=== PATIENT | female | born 1980 ===

== ENCOUNTER 2017-05-24 07:18 | Observation (INO) | payer OTHER ==
[2011-11-28 01:20] VITALS: O2SAT 100
[2017-05-24 09:29] VITALS: RESP 18; TEMP 97.2
[2017-05-24 11:34] VITALS: BP 102/72; PULSE 96
== END 2017-05-24 12:15 | disposition home or self-care (01) ==
LOC: OB 08:57
PROVIDERS: ADMIT Family Medicine; ATTEND Family Medicine
DX: Z34.83 Encounter for supervision of other normal pregnancy, third trimester (principal); Z3A.39 39 weeks gestation of pregnancy
CPT/HCPCS: 59025

== ENCOUNTER 2017-05-30 22:15 | Inpatient (IN) | payer OTHER ==
[2017-05-30] MEDS ORDERED: FENTANYL 100MCG/2ML SOL IV PRN (22:43)
[2017-05-30] MEDS ORDERED: CARBOPROST 250 MCG/ML SOL IM PRN (22:43)
[2017-05-30] MEDS ORDERED: SODIUM CHLORIDE 0.9% FLUSH 10 ML SOL IV PRN (22:43)
[2017-05-30] MEDS ORDERED: MEPIVACAINE HCL 1% MPF 30 ML SOL INFIL PRN (22:43)
[2017-05-30] MEDS ORDERED: OXYTOCIN 10000 MU/ML SOL IM PRN (22:43)
[2017-05-30] MEDS ORDERED: METHYLERGONOVINE MALEATE 0.2 MG/ML SOL IM PRN (22:43)
[2017-05-30] MEDS ORDERED: LACTATED RINGERS 1,000 ML IV PRN (22:43)
[2017-05-30] MEDS ORDERED: HYDROXYZINE HYDROCHLORIDE 25 MG/ML SOL IM PRN (23:36)
[2017-05-30] MEDS ORDERED: DIPHENHYDRAMINE 25 MG CAP PO PRN (23:36)
[2017-05-30] MEDS ORDERED: NALOXONE HYDROCHLORIDE 0.4 MG/ML SOL IV PRN (23:36)
[2017-05-30] MEDS ORDERED: DIPHENHYDRAMINE 50 MG/ML SOL IM PRN (23:36)
[2017-05-30] MEDS ORDERED: LACTATED RINGERS 1,000 ML IV SCH ×2 (23:45)
[2017-05-30] MEDS: SODIUM CHLORIDE 0.9% FLUSH 10 ML SOL IV SCH (23:48)
[2017-05-30] MEDS ORDERED: MORPHINE SULFATE 0.5 MG/ML SOL ONE (23:54)
[2017-05-30 23:55] LABS: BASOPHILS % (AUTO) 1 % (0-3); EOSINOPHILS % (AUTO) 0 % (0-9); HEMATOCRIT 43 % (35-47); HEMOGLOBIN 15.1 gm/dl (12.0-15.5); LYMPHOCYTES % (AUTO) 15.3 % (10-50); MEAN CORPUSCULAR HEMOGLOBIN 32.9 pg (27.0-32.0); MEAN CORPUSCULAR HGB CONC 35.4 gm/dl (32.0-36.0); MEAN CORPUSCULAR VOLUME 93 fL (81-99); MONOCYTES % (AUTO) 4.9 % (0-12); NEUTROPHILS % (AUTO) 78.3 % (37-80)
[2017-05-31] MEDS ORDERED: CITRIC ACID/SODIUM CITRATE SOL PO ONE (00:58)
[2017-05-31] MEDS ORDERED: CLINDAMYCIN 150 MG/ML SOL ONE ×2 (01:00→06:12)
[2017-05-31] MEDS ORDERED: PHENYLEPHRINE HYDROCHLORIDE 10 MG/ML SOL ONE (01:03)
[2017-05-31] MEDS ORDERED: OXYTOCIN 10000 MU/ML SOL ONE (01:33)
[2017-05-31] MEDS ORDERED: LACTATED RINGERS 1,000 ML with OXYTOCIN 10000 MU/ML 20 MU IV ONE (01:56)
[2017-05-31] MEDS ORDERED: DIPHENHYDRAMINE 50 MG/ML SOL ONE (02:28)
[2017-05-31] MEDS ORDERED: METHYLERGONOVINE MALEATE 0.2 MG TAB PO PRN (03:04)
[2017-05-31] MEDS ORDERED: FLEET ENEMA PR PRN (03:04)
[2017-05-31] MEDS ORDERED: DIPHENHYDRAMINE 25 MG CAP PO PRN (03:04)
[2017-05-31] MEDS ORDERED: BENZOCAINE/MENTHOL 1 SPR TOP PRN (03:04)
[2017-05-31] MEDS ORDERED: ONDANSETRON HCL 4 MG/2 ML SOL IV PRN (03:04)
[2017-05-31] MEDS ORDERED: TEMAZEPAM 15MG 15 MG CAP PO PRN (03:04)
[2017-05-31] MEDS ORDERED: WITCH HAZEL 1 EA PAD TOP PRN (03:04)
[2017-05-31] MEDS ORDERED: KETOROLAC TROMETHAMINE 30 MG/ML SOL IV PRN (03:04)
[2017-05-31] MEDS ORDERED: IBUPROFEN 600 MG TAB PO PRN (03:04)
[2017-05-31] MEDS ORDERED: BISACODYL 10 MG SUP PR PRN (03:04)
[2017-05-31] MEDS: LACTATED RINGERS 1,000 ML IV SCH (04:04)
[2017-05-31] MEDS: CLINDAMYCIN 150 MG/ML 600 MG in SODIUM CHLORIDE 0.9% 100 ML 100 ML IV SCH ×2 (04:29→06:57)
[2017-05-31 07:34] LABS: APPEARANCE,URINE Cloudy; BILIRUBIN,URINE NEGATIVE (NEGATIVE); COLOR,URINE Yellow; GLUCOSE, URINE (UA) NEGATIVE (NEGATIVE); KETONES,URINE 1+ (NEGATIVE); LEUKOCYTE ESTERASE ,URINE NEGATIVE (NEGATIVE); NITRATE,URINE NEGATIVE (NEGATIVE); OCCULT BLOOD,URINE 2+ (NEG-TRACE)
[2017-05-31 07:51] LABS: EPITHELIAL CELLS 0-2 (SQUAMOUS); WBC,URINE 0-2 (0-5AV/HPF)
[2017-05-31 07:53] LABS: BACTERIA NEGATIVE (< 1+); CRYSTALS 4+ (0-3 AVE/HPF)
[2017-05-31] MEDS: APAP/HYDROCODONE 325/5 TAB PO PRN ×3 (10:19→21:00)
[2017-05-31] MEDS: SODIUM CHLORIDE 0.9% FLUSH 10 ML SOL IV SCH ×3 (10:20→21:46)
[2017-05-31] MEDS: DOCUSATE SODIUM 100 MG SGL PO SCH ×2 (10:20→20:00)
[2017-05-31] MEDS ORDERED: SERTRALINE HYDROCHLORIDE 50 MG TAB ONE (21:51)
[2017-05-31] MEDS: SERTRALINE HYDROCHLORIDE 50 MG TAB PO SCH (21:54)
[2017-06-01] MEDS: SODIUM CHLORIDE 0.9% FLUSH 10 ML SOL IV SCH (08:25)
[2017-06-01] MEDS: APAP/HYDROCODONE 325/5 TAB PO PRN ×4 (08:26→20:19)
[2017-06-01] MEDS: DOCUSATE SODIUM 100 MG SGL PO SCH ×2 (08:26→20:19)
[2017-06-01] MEDS: LACTATED RINGERS 1,000 ML IV SCH ×2 (14:14)
[2017-06-01] MEDS ORDERED: SERTRALINE HYDROCHLORIDE 50 MG TAB ONE (20:12)
[2017-06-01] MEDS: SERTRALINE HYDROCHLORIDE 50 MG TAB PO SCH (20:19)
[2017-06-02] MEDS: APAP/HYDROCODONE 325/5 TAB PO PRN ×3 (06:06→20:04)
[2017-06-02] MEDS ORDERED: SERTRALINE HYDROCHLORIDE 50 MG TAB ONE (09:44)
[2017-06-02] MEDS: DOCUSATE SODIUM 100 MG SGL PO SCH ×2 (11:26→20:04)
[2017-06-02 17:57] VITALS: PULSE 81; RESP 16; O2SAT 98
[2017-06-02] MEDS: SERTRALINE HYDROCHLORIDE 50 MG TAB PO SCH (20:04)
[2017-06-03] MEDS: APAP/HYDROCODONE 325/5 TAB PO PRN ×2 (04:06→08:20)
[2017-06-03] MEDS: DOCUSATE SODIUM 100 MG SGL PO SCH (08:21)
[2017-06-03 09:22] VITALS: BP 124/86; TEMP 98.6
== END 2017-06-03 12:30 | disposition home or self-care (01) | DRG 540 ==
LOC: OBSVTOIN 22:15 → OB 22:15
PROVIDERS: ADMIT Family Medicine; ATTEND Family Medicine
PROC: 10D00Z1 Extraction of Products of Conception, Low, Open Approach (ICD-10-PCS; principal; 2017-05-30)
DX: O64.8XX0 Obstructed labor due to other malposition and malpresentation, not applicable or unspecified (principal); O76 Abnormality in fetal heart rate and rhythm complicating labor and delivery; Z37.0 Single live birth; Z3A.40 40 weeks gestation of pregnancy
CPT/HCPCS: 36415; 81001; 82962; 85018; 85025; 94760; 99070; J0670; J1200; J2274; J2590; J3010; J3490; A9270-GY; J2370